=== PATIENT | female | born 1995 ===

== ENCOUNTER 2018-08-06 11:03 | Emergency (ER) | payer OTHER ==
[~2018-08-06] VITALS: Ht 152.4 cm; Wt 56.7 kg
[~2018-08-06 11:03] MED LIST: AZITHROMYCIN500 MG; FOLIC ACID1 MG; IRON1 TA1
[2018-08-06] MEDS ORDERED: CLINDAMYCIN HC300 MG PO (16:01)
[2018-08-06] MEDS ORDERED: MEDROLPACK PO (16:01)
[2018-08-06] MEDS ORDERED: INTESTINEX680 M1 PO (16:01)
== END 2018-08-06 16:44 ==
LOC: ER 11:03
DX: J03.80 Acute tonsillitis due to other specified organisms (principal)